=== PATIENT | male | born 1980 | race Caucasian/White ===

== ENCOUNTER 2020-07-12 09:04 | Emergency (ER) | payer OTHER ==
[~2020-07-12] VITALS: Ht 175.3 cm; Wt 90.2 kg
[2020-07-12] MEDS ORDERED: MORPHINE SULFATE 4 MG/ML DISP.SYRIN. IV ONE (09:30)
[2020-07-12] MEDS ORDERED: ONDANSETRON PF 4 MG/2 ML VIAL. IVP ONE (09:30)
[2020-07-12] MEDS ORDERED: KETOROLAC 15 MG/ML VIAL. ONE (09:43)
[2020-07-12] MEDS ORDERED: KETOROLAC 30 MG/ML VIAL. IVP ONE (09:45)
[2020-07-12 09:49] LABS: BASO # 0.1 x10^3/uL (0.0-0.2); BASO % 1 % (0-3); EOS % 0 % (0-3); HEMATOCRIT 46.6 % (39.0-53.0); HEMOGLOBIN 16.3 g/dL (13.0-17.5); LYMPH # 2.4 x10^3/uL (1.0-4.8); LYMPH % 35 % (24-48); MEAN CORPUSCULAR HEMOGLOBIN 29 pg (25-35); MEAN CORPUSCULAR HGB CONC 35 g/dL (31-37); MEAN CORPUSCULAR VOLUME 83 fL (79-100); MONO # 0.4 x10^3/uL (0.0-1.1); MONO % 6 % (0-9); NEUT # 3.9 x10^3uL (1.8-7.7); NEUT % 58 % (31-73); PLATELET COUNT 298 x10^3/uL (140-400); RED BLOOD COUNT 5.62 x10^6/uL (4.30-5.70); RED CELL DISTRIBUTION WIDTH 13.1 % (11.5-14.5); WHITE BLOOD COUNT 6.9 x10^3/uL (4.0-11.0)
[2020-07-12 09:59] LABS: CALCIUM 9.7 mg/dL (8.5-10.1); CREATININE 1.1 mg/dL (0.7-1.3); GFR 74.9; POTASSIUM 3.8 mmol/L (3.5-5.1)
[2020-07-12 10:05] LABS: ALBUMIN 4.6 g/dL (3.4-5.0); ALBUMIN/GLOBULIN RATIO 1.2 (1.0-1.7); TOTAL BILIRUBIN 0.6 mg/dL (0.2-1.0); TOTAL PROTEIN 8.4 g/dL (6.4-8.2)
--- NOTE | 2020-07-12 10:19 | PHYS DOC ---
Past History Past Medical History: High Cholesterol, Hypertension, Kidney Stones, Other Additional Past Medical Histor: PE Past Surgical History: Other Additional Past Surgical Histo: lithrotripsy Alcohol Use: None General Adult EDM: Chief Complaint: FLANK PAIN HPI: HPI: Patient is a 29-year-old male who presented to ER due to right flank pain. Patient has a longstanding history of kidney stone. He feels like he had a kidney stone attack. Patient has history of PE in the past, he is currently on Xarelto. Patient denies any cough or fever, no chest pain, no trouble breathing. Review of Systems: Review of Systems: Constitutional: Denies fever or chills Eyes: Denies change in visual acuity HENT: Denies nasal congestion or sore throat Respiratory: Denies cough or shortness of breath Cardiovascular: Denies chest pain or edema GI: Positive for right side flank pain, abdominal pain with nausea. : Denies dysuria Musculoskeletal: Denies back pain or joint pain Integument: Denies rash Neurologic: Denies headache, focal weakness or sensory changes Endocrine: Denies polyuria or polydipsia Lymphatic: Denies swollen glands Psychiatric: Denies depression or anxiety Current Medications: Current Meds: Current Medications Medications (Trade) Dose Ordered Sig/Bakari Start Time Stop Time Status Last Admin Dose Admin Ketorolac Tromethamine (Toradol 15mg Vial) 15 mg STK-MED ONCE 07/12/20 09:43 07/12/20 09:43 DC Ketorolac Tromethamine (Toradol 30mg Vial) 30 mg 1X ONCE 07/12/20 09:45 07/12/20 09:46 DC 07/12/20 09:45 30 MG Morphine Sulfate (Morphine 4mg Syringe) 4 mg 1X ONCE 07/12/20 09:30 07/12/20 09:31 DC 07/12/20 09:39 4 MG Ondansetron HCl (Zofran) 4 mg 1X ONCE 07/12/20 09:30 07/12/20 09:31 DC 07/12/20 09:37 4 MG Allergies: Allergies: Allergies Coded Allergies Type Severity Reaction Last Updated Verified No Known Drug Allergies 07/12/20 No Physical Exam: PE: Constitutional: Well developed, well nourished, mild acute distress due to pain, non-toxic appearance. [] HENT: Normocephalic, atraumatic, bilateral external ears normal, oropharynx moist, no oral exudates, nose normal. [] Eyes: PERRLA, EOMI, conjunctiva normal, no discharge. [] Neck: Normal range of motion, no tenderness, supple, no stridor. [] Cardiovascular:Heart rate regular rhythm, no murmur [] Lungs & Thorax: Bilateral breath sounds clear to auscultation [] Abdomen: Bowel sounds normal, soft, right side CVA tenderness, no masses, no pulsatile masses. [] Skin: Warm, dry, no erythema, no rash. [] Back: No tenderness, RIGHT CVA tenderness. [] Extremities: No tenderness, no cyanosis, no clubbing, ROM intact, no edema. [] Neurologic: Alert and oriented X 3, normal motor function, normal sensory function, no focal deficits noted. [] Psychologic: Affect normal, judgement normal, mood normal. [] Current Patient Data: Labs: Laboratory Tests Test 07/12/20 09:30 White Blood Count 6.9 x10^3/uL (4.0-11.0) Red Blood Count 5.62 x10^6/uL (4.30-5.70) Hemoglobin 16.3 g/dL (13.0-17.5) Hematocrit 46.6 % (39.0-53.0) Mean Corpuscular Volume 83 fL (79-100) Mean Corpuscular Hemoglobin 29 pg (25-35) Mean Corpuscular Hemoglobin Concent 35 g/dL (31-37) Red Cell Distribution Width 13.1 % (11.5-14.5) Platelet Count 298 x10^3/uL (140-400) Neutrophils (%) (Auto) 58 % (31-73) Lymphocytes (%) (Auto) 35 % (24-48) Monocytes (%) (Auto) 6 % (0-9) Eosinophils (%) (Auto) 0 % (0-3) Basophils (%) (Auto) 1 % (0-3) Neutrophils # (Auto) 3.9 x10^3uL (1.8-7.7) Lymphocytes # (Auto) 2.4 x10^3/uL (1.0-4.8) Monocytes # (Auto) 0.4 x10^3/uL (0.0-1.1) Eosinophils # (Auto) 0.0 x10^3/uL (0.0-0.7) Basophils # (Auto) 0.1 x10^3/uL (0.0-0.2) Sodium Level 141 mmol/L (136-145) Potassium Level 3.8 mmol/L (3.5-5.1) Chloride Level 105 mmol/L (98-107) Carbon Dioxide Level 25 mmol/L (21-32) Anion Gap 11 (6-14) Blood Urea Nitrogen 15 mg/dL (8-26) Creatinine 1.1 mg/dL (0.7-1.3) Estimated GFR (Cockcroft-Gault) 74.9 BUN/Creatinine Ratio 14 (6-20) Glucose Level 120 mg/dL (70-99) H Calcium Level 9.7 mg/dL (8.5-10.1) Total Bilirubin 0.6 mg/dL (0.2-1.0) Aspartate Amino Transferase (AST) 25 U/L (15-37) Alanine Aminotransferase (ALT) 45 U/L (16-63) Alkaline Phosphatase 69 U/L (46-116) Total Protein 8.4 g/dL (6.4-8.2) H Albumin 4.6 g/dL (3.4-5.0) Albumin/Globulin Ratio 1.2 (1.0-1.7) Lipase 178 U/L (73-393) Vital Signs: Vital Signs Date Time Temp Pulse Resp B/P (MAP) Pulse Ox O2 Delivery O2 Flow Rate FiO2 07/12/20 09:46 66 18 122/66 (84) 98 Room Air 07/12/20 09:05 97.7 EKG: EKG: [] Radiology/Procedures: Radiology/Procedures: [][address] [address] IMAGING REPORT Signed PATIENT: WILLIAM DAIVS ACCOUNT: [id number] : 1980 LOCATION: ER AGE: 39 SEX: M EXAM STATUS: REG ER ORD. PHYSICIAN: SHAHRIAR ARTIS DO REASON: left flank pain PROCEDURE: CT ABDOMEN PELVIS WO CONTRAST Exam: CT abdomen/pelvis without intravenous contrast Indication: Left flank pain Comparison: None Technique: Helical CT imaging performed of the abdomen and pelvis without the use of intravenous contrast. Sagittal and coronal reformats were obtained. One or more of the following individualized dose reduction techniques were utilized for this examination: 1. Automated exposure control 2. Adjustment of the mA and/or kV according to patient size 3. Use of iterative reconstruction technique. Findings: Inherently limited evaluation without intravenous contrast. Lower chest: Normal. Liver: Normal noncontrast appearance of the liver. Gallbladder/Biliary Tree: Normal. Pancreas: Normal. Spleen: Normal. Adrenal Glands: Normal. Kidneys/Ureters/Bladder: There is mild right hydronephrosis due to a 3 mm calculus in the mid right ureter. There is bilateral nephrolithiasis. The largest calculus in the right kidney measures 2 mm. The largest calculus in the left kidney measures 5 mm. No left hydronephrosis. Probable 8 mm exophytic left simple renal cyst. The bladder is decompressed. Reproductive Organs: Prostate gland is normal. Stomach, small bowel, and colon: The stomach is normal. No small bowel obstruction. Colon and appendix are normal. Vasculature: Abdominal aorta is normal in caliber. Lymph Nodes: No lymphadenopathy. Peritoneum and retroperitoneum: No free fluid or free air. Bones: No acute osseous abnormality. Impression: Mild right hydronephrosis due to a 3 mm calculus in the mid right ureter. Bilateral nephrolithiasis. No left hydronephrosis. Electronically signed by: Rosi Loya MD (07/12/2020 10:44 AM) [id number] DICTATED AND SIGNED BY: ROSI LOYA MD DATE: 07/12/20 1033 CC: RACHANA GARCIA MD; SHAHRIAR ARTIS ~MTH0 0 Heart Score: C/O Chest Pain: N/A Risk Factors: Risk Factors: DM, Current or recent (<one month) smoker, HTN, HLP, family history of CAD, obesity. Risk Scores: Score 0 - 3: 2.5% MACE over next 6 weeks - Discharge Home Score 4 - 6: 20.3% MACE over next 6 weeks - Admit for Clinical Observation Score 7 - 10: 72.7% MACE over next 6 weeks - Early Invasive Strategies Course & Med Decision Making: Course & Med Decision Making Pertinent Labs and Imaging studies reviewed. (See chart for details) Patient is a 39-year-old male who presented to ER due to right-sided flank pain, patient was found to have a 3 mm right mid ureteral stone with mild hydronephrosis. There is no evidence of infection. Patient was given medication in the ER, he felt much better. Patient will be discharged from the ER, he will need to follow-up with his urologist at [facility]. Patient'S is here to take him home. Gloria Disclaimer: Gloria Disclaimer: This electronic medical record was generated, in whole or in part, using a voice recognition dictation system. Departure Departure: Impression: Primary Impression: Kidney stone on right side Disposition: HOME / SELF CARE / HOMELESS Condition: IMPROVED Referrals: RACHANA GARCIA MD (PCP) PLEASE FOLLOW UP WITH YOUR UROLOGIST NEXT WEEK Patient Instructions: Diet for Kidney Stones, Kidney Stones Additional Instructions: Thank you for visiting our Emergency Department. We appreciate you trusting us with your care. If any additional problems come up don't hesitate to return to visit us. Please follow up with your primary care provider so they can plan additional care if needed and know about the problem that you had. If symptoms worsen come back to the Emergency Department. Any concerning symptoms that start such as chest pain, shortness of air, weakness or numbness on one side of the body, running high fevers or any other concerning symptoms return to the ER. Scripts Ondansetron Hcl (ZOFRAN) 4 Mg Tablet 1 TAB PO Q6HRS PRN for NAUSEA, #20 TAB Prov: SHAHRIAR ARTIS DO 07/12/20 Tamsulosin Hcl (FLOMAX) 0.4 Mg Cap.er.24h 1 CAP PO DAILY for KIDNEY STONE, #14 CAP 11 Refills Prov: SHAHRIAR ARTIS DO 07/12/20 Hydrocodone/Acetaminophen (Hydrocodone-Acetamin 5-325 mg) 1 Each Tablet 1 EACH PO Q6HRS PRN for PAIN, #20 TAB Prov: SHAHRIAR ARTIS DO 07/12/20 SHAHRIAR ARTIS DO Jul 12, 2020 10:19
--- NOTE | 2020-07-12 10:46 | RAD ---
Exam: CT abdomen/pelvis without intravenous contrast Indication: Left flank pain Comparison: None Technique: Helical CT imaging performed of the abdomen and pelvis without the use of intravenous cont rast. Sagittal and coronal reformats were obtained. One or more of the following individualized dose reduction techniques were utilized for this examinat ion: 1. Automated exposure control 2. Adjustment of the mA and/or kV according to patient size 3. Use of iterative reconstruction technique. Findings: Inherently limited evaluation without intravenous contrast. Lower chest: Normal. Liver: Normal noncontrast appearance of the liver. Gallbladder/Biliary Tree: Normal. Pancreas: Normal. Spleen: Normal. Adrenal Glands: Normal. Kidneys/Ureters/Bladder: There is mild right hydronephrosis due to a 3 mm calculus in the mid right u reter. There is bilateral nephrolithiasis. The largest calculus in the right kidney measures 2 mm. Th e largest calculus in the left kidney measures 5 mm. No left hydronephrosis. Probable 8 mm exophytic left simple renal cyst. The bladder is decompressed. Reproductive Organs: Prostate gland is normal. Stomach, small bowel, and colon: The stomach is normal. No small bowel obstruction. Colon and appendi x are normal. Vasculature: Abdominal aorta is normal in caliber. Lymph Nodes: No lymphadenopathy. Peritoneum and retroperitoneum: No free fluid or free air. Bones: No acute osseous abnormality. Impression: Mild right hydronephrosis due to a 3 mm calculus in the mid right ureter. Bilateral nephr olithiasis. No left hydronephrosis. Electronically signed by: Rosi Loya MD (07/12/2020 10:44 AM) [id number]
[2020-07-12] MEDS ORDERED: TAMSULOSIN 0.4 MG CAP.ER.24H. PO ONE ×2 (10:59→11:00)
[2020-07-12 11:02] LABS: BACTERIA,URINE 0 /HPF (0-FEW); BILIRUBIN,URINE NEG (NEG); CLARITY,URINE TURBID; COLOR,URINE AMBER; GLUCOSE,URINE NEG (NEG); NITRITE,URINE NEG (NEG); RBC,URINE >40 /HPF (0-2); UROBILINOGEN,URINE 0.2 mg/dL (0.2 mg/dL); WBC,URINE RARE /HPF (0-4)
[2020-07-12] MEDS ORDERED: TAMS0.4C97 PO (11:26)
[2020-07-12] MEDS ORDERED: ONDA4TAB7 PO (11:26)
[2020-07-12] MEDS ORDERED: HYDR-2759 PO (11:26)
[2020-07-12 11:51] VITALS: BP 128/73
== END 2020-07-12 11:51 | disposition home or self-care (01) ==
LOC: ER 09:04
DX: N13.2 Hydronephrosis with renal and ureteral calculous obstruction (principal); E78.00 Pure hypercholesterolemia, unspecified; I10 Essential (primary) hypertension; Z87.442 Personal history of urinary calculi; Z86.711 Personal history of pulmonary embolism; Z79.01 Long term (current) use of anticoagulants
CPT/HCPCS: 36415; 74176; 80053; 81001; 83690; 85025; 96374; 96375; 99285; J1885; J2270; J2405; J3010

== ENCOUNTER 2020-08-18 17:26 | Emergency (ER) | payer OTHER ==
[~2020-08-18] VITALS: Ht 175.3 cm; Wt 88.6 kg
[~2020-08-18 17:26] MED LIST: HYDR-2759 PO; ONDA4TAB7 PO; TAMS0.4C97 PO
[2020-08-18] MEDS ORDERED: KETOROLAC 30 MG/ML VIAL. IVP ONE (18:15)
[2020-08-18] MEDS ORDERED: IV NORMAL SALINE 1,000ML 1,000 ML IV ONE (18:15)
--- NOTE | 2020-08-18 18:49 | RAD ---
EXAM: CT Abdomen and Pelvis without IV contrast CLINICAL HISTORY: ACUTE RIGHT SIDED CVA AND FLANK PAIN COMPARISON: 07/12/2020 TECHNIQUE: Helical CT of the abdomen and pelvis without intravenous contrast. Axial, coronal and sagi ttal reformatted images were generated. PQRS compliance statement - One or more of the following individualized dose reduction techniques wer e utilized for this study: 1. Automated exposure control 2. Adjustment of the mA and/or kV according to patient size 3. Use of iterative reconstruction technique FINDINGS: Lack of intravenous contrast limits evaluation of solid organs, vasculature, and lymph nodes. Lower chest: Lung bases are clear. Abdomen and Pelvis: No focal liver lesion. Gallbladder is normal. No biliary ductal dilatation. Pancreas is unremarkable. Spleen is normal in appearance. Adrenal glands are unremarkable. Multiple nonobstructing left renal calculi are seen. Several nonobstructing right renal calculi are also seen. There is marked right hyd ronephrosis. There is moderate to marked right hydroureter to the level of the distal ureter where th ere is a 5 mm calculus. No left ureteral calculus. Infiltration about the right ureter. No bladder ca lculus. Trace fat-containing periumbilical hernia. No abdominal or pelvic lymphadenopathy. No abdomin al or pelvic ascites. Appendix is normal. Moderate colonic stool content. No small or large bowel dil atation. No bowel obstruction. Bones: Scattered bone islands are seen. No aggressive osseous lesion is seen. IMPRESSION: 1. 5 mm calculus within the distal right ureter results in moderate to marked right hydroureter and mild right hydronephrosis. 2. Infiltration about the right ureter may be reactive or related to ascending infection. 3. Additional bilateral nonobstructing renal calculi are seen. Electronically signed by: Ben Oneil MD (08/18/2020 6:46 PM) [facility]
[2020-08-18] MEDS ORDERED: HYDROmorphone PF 1 MG/ML DISP.SYRIN IVP ONE ×2 (19:00→21:30)
[2020-08-18 19:39] LABS: BACTERIA,URINE 0 /HPF (0-FEW); BILIRUBIN,URINE NEG (NEG); CLARITY,URINE CLOUDY; COLOR,URINE YELLOW; GLUCOSE,URINE NEG (NEG); NITRITE,URINE NEG (NEG); RBC,URINE 20-40 /HPF (0-2); UROBILINOGEN,URINE 0.2 mg/dL (0.2 mg/dL); WBC,URINE 0 /HPF (0-4)
[2020-08-18 19:40] LABS: AMORPHOUS SEDIMENT,UR PRESENT /HPF; SQUAMOUS EPITHELIAL CELL,UR OCC /LPF
[2020-08-18 21:58] LABS: CALCIUM 9.8 mg/dL (8.5-10.1); CREATININE 1.2 mg/dL (0.7-1.3); GFR 67.4; POTASSIUM 3.7 mmol/L (3.5-5.1)
[2020-08-18 22:02] LABS: BASO # 0.1 x10^3/uL (0.0-0.2); BASO % 1 % (0-3); EOS # 0.1 x10^3/uL (0.0-0.7); EOS % 1 % (0-3); HEMATOCRIT 49.3 % (39.0-53.0); LYMPH # 3.1 x10^3/uL (1.0-4.8); LYMPH % 33 % (24-48); MEAN CORPUSCULAR HEMOGLOBIN 29 pg (25-35); MEAN CORPUSCULAR HGB CONC 35 g/dL (31-37); MEAN CORPUSCULAR VOLUME 84 fL (79-100); MONO # 0.5 x10^3/uL (0.0-1.1); MONO % 6 % (0-9); NEUT # 5.7 x10^3uL (1.8-7.7); NEUT % 60 % (31-73); PLATELET COUNT 295 x10^3/uL (140-400); RED BLOOD COUNT 5.86 x10^6/uL (4.30-5.70); RED CELL DISTRIBUTION WIDTH 13.3 % (11.5-14.5); WHITE BLOOD COUNT 9.5 x10^3/uL (4.0-11.0)
[2020-08-18 22:05] LABS: ALBUMIN 4.8 g/dL (3.4-5.0); ALBUMIN/GLOBULIN RATIO 1.2 (1.0-1.7); TOTAL BILIRUBIN 0.7 mg/dL (0.2-1.0); TOTAL PROTEIN 8.8 g/dL (6.4-8.2)
--- NOTE | 2020-08-18 22:30 | PHYS DOC ---
Past History Past Medical History: High Cholesterol, Hypertension, Kidney Stones, Other Additional Past Medical Histor: PE (KENYA WEBSTER APRN) Past Surgical History: Other Additional Past Surgical Histo: lithrotripsy (KENYA WEBSTER APRN) Alcohol Use: None (KENYA WEBSTER APRN) Adult General Chief Complaint Chief Complaint: FLANK PAIN HPI HPI Patient is a 40-year-old male who reports a sudden onset of right sided flank pain that started at approximately 1600 today. Patient states he has a history of multiple kidney stones and is seen a Dr. BAGLEY through the [facility] for urology care. Patient states he takes Xarelto for a pulmonary emboli he experienced last summer. Patient reports taking 10 mg of Norvasc for blood pressure. Patient states the onset of pain was similar to his previous kidney stones. Patient denies seeing blood in his urine. Patient denies any abdominal pain, nausea, vomiting, or diarrhea. Patient states his pain is a 10/10 pain on a 1-10 pain scale. Patient denies any recent fever or chills. Patient denies any other physical complaints or physical concerns. (KENYA WEBSTER APRN) Review of Systems Review of Systems 14 body systems of review of systems have been reviewed. See HPI for pertinent positives and negative responses, otherwise all other systems are negative, nonpertinent or noncontributory. (KENYA WEBSTER APRN) Current Medications Current Medications Current Medications Medications (Trade) Dose Ordered Sig/Bakari Start Time Stop Time Status Last Admin Dose Admin Fentanyl Citrate (Fentanyl 2ml Vial) 100 mcg 1X ONCE 08/18/20 18:30 08/18/20 18:32 DC 08/18/20 18:30 100 MCG Hydromorphone HCl (Dilaudid) 1 mg 1X ONCE 08/18/20 21:30 08/18/20 21:31 DC 08/18/20 21:11 1 MG Ketorolac Tromethamine (Toradol 30mg Vial) 30 mg 1X ONCE 08/18/20 18:15 08/18/20 18:21 DC 08/18/20 18:15 30 MG Sodium Chloride 1,000 ml @ 1,000 mls/hr 1X ONCE 08/18/20 18:15 08/18/20 19:14 DC 08/18/20 18:15 1,000 MLS/HR (KENYA WEBSTER APRN) Allergies Allergies Allergies Coded Allergies Type Severity Reaction Last Updated Verified No Known Drug Allergies 07/12/20 No (KENYA WEBSTER APRN) Physical Exam Physical Exam Constitutional: Well developed, well nourished, in obvious acute distress, non- toxic appearance. 40-year-old male in obvious acute pain, pacing around the room holding his right side. HENT: Normocephalic, atraumatic, bilateral external ears normal, oropharynx moist, no oral exudates, nose normal. Eyes: PERRLA, EOMI, conjunctiva normal, no discharge. Neck: Normal range of motion, no tenderness, supple, no stridor. Cardiovascular:Heart rate regular rhythm, no murmur, heart sounds S1-S2 to auscultation. Lungs & Thorax: Bilateral breath sounds clear to auscultation no adventitious lung sounds appreciated. Abdomen: Bowel sounds normal, soft, no tenderness, no masses, no pulsatile masses. Skin: Warm, dry, no erythema, no rash. Back: No tenderness, no left-sided CVA tenderness, positive right-sided CVA tenderness, radiates to right flank. Extremities: No tenderness, no cyanosis, no clubbing, ROM intact, no edema. Neurologic: Alert and oriented X 3, normal motor function, normal sensory function, no focal deficits noted. Psychologic: Affect normal, judgement normal, mood normal. (KENYA WEBSTER APRN) Current Patient Data Vital Signs Vital Signs Date Time Temp Pulse Resp B/P (MAP) Pulse Ox O2 Delivery O2 Flow Rate FiO2 08/18/20 21:11 20 94 Room Air 08/18/20 20:45 67 08/18/20 20:34 138/68 (91) Lab Results Laboratory Tests Test 08/18/20 17:58 08/18/20 19:02 White Blood Count 9.5 x10^3/uL (4.0-11.0) Red Blood Count 5.86 x10^6/uL (4.30-5.70) H Hemoglobin 17.0 g/dL (13.0-17.5) Hematocrit 49.3 % (39.0-53.0) Mean Corpuscular Volume 84 fL (79-100) Mean Corpuscular Hemoglobin 29 pg (25-35) Mean Corpuscular Hemoglobin Concent 35 g/dL (31-37) Red Cell Distribution Width 13.3 % (11.5-14.5) Platelet Count 295 x10^3/uL (140-400) Neutrophils (%) (Auto) 60 % (31-73) Lymphocytes (%) (Auto) 33 % (24-48) Monocytes (%) (Auto) 6 % (0-9) Eosinophils (%) (Auto) 1 % (0-3) Basophils (%) (Auto) 1 % (0-3) Neutrophils # (Auto) 5.7 x10^3uL (1.8-7.7) Lymphocytes # (Auto) 3.1 x10^3/uL (1.0-4.8) Monocytes # (Auto) 0.5 x10^3/uL (0.0-1.1) Eosinophils # (Auto) 0.1 x10^3/uL (0.0-0.7) Basophils # (Auto) 0.1 x10^3/uL (0.0-0.2) Sodium Level 142 mmol/L (136-145) Potassium Level 3.7 mmol/L (3.5-5.1) Chloride Level 103 mmol/L (98-107) Carbon Dioxide Level 26 mmol/L (21-32) Anion Gap 13 (6-14) Blood Urea Nitrogen 15 mg/dL (8-26) Creatinine 1.2 mg/dL (0.7-1.3) Estimated GFR (Cockcroft-Gault) 67.4 BUN/Creatinine Ratio 13 (6-20) Glucose Level 113 mg/dL (70-99) H Calcium Level 9.8 mg/dL (8.5-10.1) Total Bilirubin 0.7 mg/dL (0.2-1.0) Aspartate Amino Transferase (AST) 31 U/L (15-37) Alanine Aminotransferase (ALT) 43 U/L (16-63) Alkaline Phosphatase 87 U/L (46-116) Total Protein 8.8 g/dL (6.4-8.2) H Albumin 4.8 g/dL (3.4-5.0) Albumin/Globulin Ratio 1.2 (1.0-1.7) Urine Collection Type Void Urine Color Yellow Urine Clarity Cloudy Urine pH 7.5 Urine Specific [place] 1.020 Urine Protein 30 mg/dl (NEG-TRACE) Urine Glucose (UA) Neg mg/dL (NEG) Urine Ketones (Stick) Neg mg/dL (NEG) Urine Blood Large (NEG) Urine Nitrite Neg (NEG) Urine Bilirubin Neg (NEG) Urine Urobilinogen Dipstick 0.2 mg/dL (0.2 mg/dL) Urine Leukocyte Esterase Neg (NEG) Urine RBC 20-40 /HPF (0-2) Urine WBC 0 /HPF (0-4) Urine Squamous Epithelial Cells Occ /LPF Urine Amorphous Sediment Present /HPF Urine Bacteria 0 /HPF (0-FEW) (KENYA WEBSTER APRN) EKG EKG [] (KENYA WEBSTER APRN) Radiology/Procedures Radiology/Procedures PATIENT: WILLIAM DAVIS ACCOUNT: [id number] : 1980 LOCATION: ER AGE: 40 SEX: M EXAM STATUS: REG ER ORD. PHYSICIAN: KENYA WEBSTER APRN REASON: ACUTE RIGHT SIDED CVA AND FLANK PAIN PROCEDURE: CT ABDOMEN PELVIS WO CONTRAST EXAM: CT Abdomen and Pelvis without IV contrast CLINICAL HISTORY: ACUTE RIGHT SIDED CVA AND FLANK PAIN COMPARISON: 07/12/2020 TECHNIQUE: Helical CT of the abdomen and pelvis without intravenous contrast. Axial, coronal and sagittal reformatted images were generated. PQRS compliance statement - One or more of the following individualized dose reduction techniques were utilized for this study: 1. Automated exposure control 2. Adjustment of the mA and/or kV according to patient size 3. Use of iterative reconstruction technique FINDINGS: Lack of intravenous contrast limits evaluation of solid organs, vasculature, and lymph nodes. Lower chest: Lung bases are clear. Abdomen and Pelvis: No focal liver lesion. Gallbladder is normal. No biliary ductal dilatation. Pancreas is unremarkable. Spleen is normal in appearance. Adrenal glands are unremarkable. Multiple nonobstructing left renal calculi are seen. Several nonobstructing right renal calculi are also seen. There is marked right hydronephrosis. There is moderate to marked right hydroureter to the level of the distal ureter where there is a 5 mm calculus. No left ureteral calculus. Infiltration about the right ureter. No bladder calculus. Trace fat-containing periumbilical hernia. No abdominal or pelvic lymphadenopathy. No abdominal or pelvic ascites. Appendix is normal. Moderate colonic stool content. No small or large bowel dilatation. No bowel obstruction. Bones: Scattered bone islands are seen. No aggressive osseous lesion is seen. IMPRESSION: 1. 5 mm calculus within the distal right ureter results in moderate to marked right hydroureter and mild right hydronephrosis. 2. Infiltration about the right ureter may be reactive or related to ascending infection. 3. Additional bilateral nonobstructing renal calculi are seen. Electronically signed by: Ben Kumari MD (08/18/2020 6:46 PM) [facility] DICTATED AND SIGNED BY: BEN KUMARI MD DATE: 08/18/201841 CC: KENYA WEBSTER APRN; RACHANA GARCIA MD ~MTH0 0 (KENYA WEBSTER APRN) Heart Score C/O Chest Pain: No Risk Factors: Risk Factors: DM, Current or recent (<one month) smoker, HTN, HLP, family history of CAD, obesity. Risk Scores: Risk Factors: DM, Current or recent (<one month) smoker, HTN, HLP, family history of CAD, obesity. (KENYA WEBSTER APRN) Course & Med Decision Making Course & Med Decision Making Pertinent Labs and Imaging studies reviewed. (See chart for details) 40-year-old male, vital signs reviewed, presents to the emergency department complaining sudden onset of kidney stone pain on the right flank. Patient's physical examination consistent with kidney stone pain, will order urinalysis assay, IV saline lock, 1 L normal saline, [address] abdomen pelvis without contrast for kidney stone study. business office technician states patient unable to tolerate CT related to acute severe pain. Ordered an additional 100 mg IV fentanyl for pain. Patient able to tolerate CT after fentanyl given IV, patient complains of a 8/10 pain 1-10 pain scale, 1 mg Dilaudid ordered. After period of time reexamination of the patient, patient states his pain is still a 5 or 6/10 pain on 10 pain scale, patient given an additional milligram of Dilaudid for pain. CT shows 5 mm kidney stone right distal ureter with hydronephrosis. Related to patient's intractable pain and 5 mm stone will recommend transfer and admission to hospital with urology specialty. Patient is amenable to this plan. Patient states that he would rather stay with his [facility] system. Paged out [facility] transfer team center. [facility] transfer team center return page spoke with hospitalist Dr. Aviles who stated [facility] on the [facility] and canceled and was very unable to accept admission related to no beds available. Dr. Aviles offered admission to [facility] with available bed however patient's primary urologist does not have privileges at that hospital, will see a different urology specialist. Discussed this with patient who is amendable to this plan. Patient states that he will accept transfer to [facility] for admission to see urology specialist. Dr. Aviles requested CBC CMP. Pending labs at this time. Awaiting to [facility] transfer team to return acceptance to [facility] pending speaking to [facility] hospitalist. [facility] transfer team return call stating Dr. Aviles has accepted transfer on behalf of [facility] hospitalist. Awaiting available bed to be cleaned and [facility] household cook/transfer center to call for bed number and nursing report prior to transfer to [facility]. Patient awaiting bed at [facility] at this time. Patient is aware of this. Upon reevaluation of the patient, the patient states his pain is now a 2/10 pain. Discussed patient case with ED attending Dr. Lopez, Dr. Lopez is aware patient is awaiting bed to be cleaned at [facility]. End of shift report given to Dr. Lopez. (KENYA WEBSTER APRN) Course & Med Decision Making The patient is being transferred by ambulance to [facility]. The patient was transferred without incident. (JACKSON LOPEZ DO) Dragon Disclaimer Dragon Disclaimer This electronic medical record was generated, in whole or in part, using a voice recognition dictation system. (KENYA WEBSTER APRN) Attending Co-Sign The patient was seen and interviewed as well as examined at the bedside. The chart was reviewed. The case was discussed. Agree with the plan of care. (JACKSON LOPEZ DO) Departure Departure: Impression: Primary Impression: Kidney stone on right side Additional Impression: Intractable pain Disposition: 02 SHORT TERM HOSPITAL (Patient accepted by Dr. Aviles at [facility].) Condition: STABLE Referrals: RACHANA GARCIA MD (PCP) Problem Qualifiers KENYA WEBSTER APRN August 18, 2020 22:30 JACKSON LOPEZ DO August 18, 2020 23:50
[2020-08-18 23:13] VITALS: BP 116/73
== END 2020-08-19 00:05 | disposition short-term general hospital (02) ==
LOC: ER 17:26
DX: N20.0 Calculus of kidney (principal); I10 Essential (primary) hypertension; E78.5 Hyperlipidemia, unspecified
CPT/HCPCS: 36415; 74176; 80053; 81001; 85025; 96361; 96374; 96375; 96376; 99285; J1170; J1885; J3010; J7030